=== PATIENT | male | born 1980 | race Caucasian/White ===

== ENCOUNTER 2018-12-16 18:26 | Emergency (ER) | payer MEDICAID, MEDICARE, OTHER ==
[~2018-12-16] VITALS: Ht 172.7 cm; Wt 106.6 kg
--- OUTSIDE RECORDS SUMMARY | 2018-12-16 18:34 | XMS REPORT | Continuity of Care Document ---
Author Author [facility] Address Unknown Phone Unavailable Allergies There is no data. Medications There is no data. Problems Date Dx Coded Attending Type Code Diagnosis Diagnosed By 08/14/2012 DIOGO HARTLEY PHD V06.1 TDAP DX 08/14/2012 V06.1 TDAP DX 08/14/2012 V06.1 TDAP DX 08/14/2012 FRANSISCA EDWARD DO V06.1 TDAP DX 08/14/2012 IDOGO HARTLEY PHD V06.1 TDAP DX 08/14/2012 V06.1 TDAP DX 08/14/2012 V06.1 TDAP DX 08/14/2012 V06.1 TDAP DX 08/14/2012 V06.1 TDAP DX 08/14/2012 DIOGO HARTLEY PHD V06.1 TDAP DX 08/14/2012 ODILIA PHD, DIOGO A V06.1 TDAP DX 08/14/2012 ODILIA BARRAZA, DIOGO A V06.1 TDAP DX 08/14/2012 DIOGO HARTLEY PHD A V06.1 TDAP DX 08/14/2012 DIOGO HARTLEY PHD A V06.1 TDAP DX 09/09/2012 DIOGO HARTLEY PHD 296.90 MOOD DISORDER NOS 09/09/2012 DIOOG HARTLEY PHD 300.00 AN ANXIETY UNSPEC 09/09/2012 296.90 MOOD DISORDER NOS 09/09/2012 300.00 AN ANXIETY UNSPEC 09/09/2012 296.90 MOOD DISORDER NOS 09/09/2012 300.00 AN ANXIETY UNSPEC 09/09/2012 FRANSISCA EDWARD DO 296.90 MOOD DISORDER NOS 09/09/2012 FRANSISCA EDWARD DO 300.00 AN ANXIETY UNSPEC 09/09/2012 DIOGO HARTLEY PHD 296.90 MOOD DISORDER NOS 09/09/2012 DIOGO HARTLEY PHD 300.00 AN ANXIETY UNSPEC 09/09/2012 296.90 MOOD DISORDER NOS 09/09/2012 300.00 AN ANXIETY UNSPEC 09/09/2012 296.90 MOOD DISORDER NOS 09/09/2012 300.00 AN ANXIETY UNSPEC 09/09/2012 296.90 MOOD DISORDER NOS 09/09/2012 300.00 AN ANXIETY UNSPEC 09/09/2012 296.90 MOOD DISORDER NOS 09/09/2012 300.00 AN ANXIETY UNSPEC 09/09/2012 DIOGO HARTLEY PHD 296.90 MOOD DISORDER NOS 09/09/2012 ODILIA BARRAZA, DIOGO A 300.00 AN ANXIETY UNSPEC 09/09/2012 DIOGO HARTLEY PHD A 296.90 MOOD DISORDER NOS 09/09/2012 ODILIA BARRAZA, DIOGO A 300.00 AN ANXIETY UNSPEC 09/09/2012 DIOGO HARTLEY PHD A 296.90 MOOD DISORDER NOS 09/09/2012 DIOGO HARTLEY PHD A 300.00 AN ANXIETY UNSPEC 09/09/2012 DIOGO HARTLEY PHD A 296.90 MOOD DISORDER NOS 09/09/2012 DIOGO HARTLEY PHD A 300.00 AN ANXIETY UNSPEC 09/09/2012 DIOGO HARTLEY PHD A 296.90 MOOD DISORDER NOS 09/09/2012 ODILIA BARRAZA, DIOGO A 300.00 AN ANXIETY UNSPEC 09/09/2012 DIOGO HARTLEY PHD A 296.90 MOOD DISORDER NOS 09/09/2012 DIOGO HARTLEY PHD A 300.00 AN ANXIETY UNSPEC 11/13/2012 FRANSISCA EDWARD DO 311 DEPRESSIVE DISORDER NOS 11/13/2012 FRANSISCA EDWARD DO 312.30 I IMPULSE CONTROL DISORDER NOS 11/13/2012 FRANSISCA EDWARD DO 314.01 ATTENTION DEFICIT DISORDER OF CHILDHOOD WITH HYPERACTIVITY 11/13/2012 DIOGO HARTLEY PHD 311 DEPRESSIVE DISORDER NOS 11/13/2012 DIOGO HARTLEY PHD 312.30 I IMPULSE CONTROL DISORDER NOS 11/13/2012 DIOGO HARTLEY PHD 314.01 ATTENTION DEFICIT DISORDER OF CHILDHOOD WITH HYPERACTIVITY 11/13/2012 311 DEPRESSIVE DISORDER NOS 11/13/2012 312.30 I IMPULSE CONTROL DISORDER NOS 11/13/2012 314.01 ATTENTION DEFICIT DISORDER OF CHILDHOOD WITH HYPERACTIVITY 11/13/2012 311 DEPRESSIVE DISORDER NOS 11/13/2012 312.30 I IMPULSE CONTROL DISORDER NOS 11/13/2012 314.01 ATTENTION DEFICIT DISORDER OF CHILDHOOD WITH HYPERACTIVITY 11/13/2012 311 DEPRESSIVE DISORDER NOS 11/13/2012 312.30 I IMPULSE CONTROL DISORDER NOS 11/13/2012 314.01 ATTENTION DEFICIT DISORDER OF CHILDHOOD WITH HYPERACTIVITY 11/13/2012 311 DEPRESSIVE DISORDER NOS 11/13/2012 312.30 I IMPULSE CONTROL DISORDER NOS 11/13/2012 314.01 ATTENTION DEFICIT DISORDER OF CHILDHOOD WITH HYPERACTIVITY 11/13/2012 DIOGO HARTLEY PHD 311 DEPRESSIVE DISORDER NOS 11/13/2012 DIOGO HARTLEY PHD 312.30 I IMPULSE CONTROL DISORDER NOS 11/13/2012 DIOGO HARTLEY PHD 314.01 ATTENTION DEFICIT DISORDER OF CHILDHOOD WITH HYPERACTIVITY 11/13/2012 DIOGO HARTLEY PHD 311 DEPRESSIVE DISORDER NOS 11/13/2012 DIOGO HARTLEY PHD 312.30 I IMPULSE CONTROL DISORDER NOS 11/13/2012 DIOGO HARTLEY PHD 314.01 ATTENTION DEFICIT DISORDER OF CHILDHOOD WITH HYPERACTIVITY 11/13/2012 DIOGO HARTLEY PHD 311 DEPRESSIVE DISORDER NOS 11/13/2012 DIOGO HARTLEY PHD 312.30 I IMPULSE CONTROL DISORDER NOS 11/13/2012 DIOGO HARTLEY PHD 314.01 ATTENTION DEFICIT DISORDER OF CHILDHOOD WITH HYPERACTIVITY 11/13/2012 DIOGO HARTLEY PHD 311 DEPRESSIVE DISORDER NOS 11/13/2012 DIOGO HARTLEY PHD 312.30 I IMPULSE CONTROL DISORDER NOS 11/13/2012 DIOGO HARTLEY PHD 314.01 ATTENTION DEFICIT DISORDER OF CHILDHOOD WITH HYPERACTIVITY 11/13/2012 DIOGO HARTLEY PHD 311 DEPRESSIVE DISORDER NOS 11/13/2012 DIOGO HARTLEY PHD 312.30 I IMPULSE CONTROL DISORDER NOS 11/13/2012 DIOGO HARTLEY PHD 314.01 ATTENTION DEFICIT DISORDER OF CHILDHOOD WITH HYPERACTIVITY Procedures Code [place] [address] PSYCH DIAG INTER EXAM 09/09/2012 54081 INDIV PSYTX 45/50 MIN 09/19/2012 52221 PSYTX PT&/FAMILY 45 MINUTES 10/24/2012 87193 PSYTX PT&/FAMILY 45 MINUTES 11/07/2012 69074 PSYTX PT&/FAMILY 45 MINUTES 12/05/2012 91505 PSYTX PT&/FAMILY 45 MINUTES 01/28/2013 91291 PSYTX PT&/FAMILY 45 MINUTES 03/07/2013 74953 PSYTX PT&/FAMILY 45 MINUTES 06/13/2013 81179 PSYTX PT&/FAMILY 45 MINUTES 07/10/2013 98308 PSYTX PT&/FAMILY 45 MINUTES 07/17/2013 42577 PSYTX PT&/FAMILY 45 MINUTES 07/25/2013 07731 PSYTX PT&/FAMILY 45 MINUTES 08/13/2013 46736 PSYTX PT&/FAMILY 45 MINUTES 08/28/2013 Results There is no data. Encounters ACCT No. Visit Date/Time Discharge Status Pt. Type Provider Facility Loc./Unit Complaint [id number] 08/27/2013 12:42:00 08/27/2013 23:59:59 CLS Outpatient DIOGO HARTLEY PHD [id number] 08/12/2013 11:39:00 08/12/2013 23:59:59 CLS Outpatient DIOGO HARTLEY PHD [id number] 07/24/2013 14:36:00 07/24/2013 23:59:59 CLS Outpatient DIOGO HARTLEY PHD [id number] 07/16/2013 12:22:00 07/16/2013 23:59:59 CLS Outpatient DIOGO HARTLEY PHD [id number] 07/09/2013 13:14:00 07/09/2013 23:59:59 CLS Outpatient DIOGO HARTLEY PHD [id number] 12/04/2012 10:53:00 12/04/2012 23:59:59 CLS Outpatient DIOGO HARTLEY PHD [id number] 11/22/2012 10:45:00 11/22/2012 23:59:59 CLS Outpatient FRANSISCA EDWARD DO [id number] 11/06/2012 10:38:00 11/06/2012 23:59:59 CLS Outpatient [id number] 10/23/2012 10:39:00 10/23/2012 23:59:59 CLS Outpatient [id number] 09/19/2012 07:47:00 09/19/2012 23:59:59 CLS Outpatient DIOGO HARTLEY PHD [id number] 08/14/2012 12:57:33 08/14/2012 23:59:59 CLS Outpatient DIOGO HARTLEY PHD [id number] 06/12/2013 12:45:00 Document Registration [id number] 03/06/2013 08:51:00 Document Registration [id number] 02/13/2013 16:06:00 Document Registration [id number] 01/24/2013 10:36:00 Document Registration
[2018-12-16] MEDS ORDERED: NS IV 1000 ML 3,197.82 ML IV ONE (20:30)
[2018-12-16] MEDS ORDERED: ACETAMINOPHEN 500 MG TAB (TYLENOL) PO PRN (20:30)
--- NOTE | 2018-12-16 20:31 | ED General ---
General Chief Complaint: Fever-Adult/Adol Stated Complaint: FEVER, BONE ACHES, HEADACHES, VOMITING Nursing Triage Note: Pt arrived by private car with chief complaint of fever of 101.4 degrees since 0630, cough, body aches, headache with pain of 4, nausea and vomiting. Pt stated he got sick this morning. Pt is alert, oriented and ambulatory. Pt stated he "feels like crap." Pt has not taken anything for the fever. Pt's temp was 104.4 degrees on arrival Nursing Sepsis Screen: Possible Sepsis Risk History of Present Illness Date Seen by Provider: Dec 16, 2018 Time Seen by Provider: 20:19 Timing/Duration: 1-2 Days Severity: Moderate Modifying Factors: improves with Other (tried no medications) This is a 38-year-old male with a history of hypertension who takes no medications who is here with 1 day of fever, body aches, mild nonproductive cough, minimal sore throat, headache. Headache not abrupt in onset or worst of life. No visual change or focal weakness, numbness, or tingling. No neck pain or neck stiffness. Did have nausea earlier in the day but this has resolved. Patient has had a flu shot. No rash. No other symptoms. Allergies and Home Medications Allergies Coded Allergies: No Known Drug Allergies (Unverified , 12/16/18) Patient Home Medication List Home Medication List Reviewed: Yes Review of Systems Review of Systems Constitutional: see HPI EENTM: see HPI Respiratory: see HPI Cardiovascular: no symptoms reported Gastrointestinal: see HPI Genitourinary: no symptoms reported Musculoskeletal: see HPI Skin: no symptoms reported Psychiatric/Neurological: See HPI Hematologic/Lymphatic: No Symptoms Reported Immunological/Allergic: no symptoms reported Past Zcvnrbc-Towdhh-Zcepxw Hx Patient Social History Recent Foreign Travel: No Contact w/Someone Who Travel: No Recent Infectious Disease Expo: No Physical Abuse: No Sexual Abuse: No Mistreated: No Fear: No Physical Exam-Suspected Sepsis Physical Exam Vital Signs Vital Signs - First Documented 12/16/18 18:35 Temp 104.4 Pulse 118 Resp 20 B/P (MAP) 157/88 (111) Pulse Ox 99 O2 Delivery Room Air Capillary Refill : Less Than 3 Seconds Blood Pressure Mean: 111 Height, Weight, BMI Height: 5'8.00" Weight: 235lbs. 0oz. 106.092698fu; BMI Method:Stated General Appearance: No Apparent Distress HEENT: PERRL/EOMI, Moist Mucous Membranes Neck: Supple Respiratory: Lungs Clear Cardiovascular: Regular Rate, Rhythm, Normal Peripheral Pulses Gastrointestinal: Non Tender, Soft Extremity: Normal Capillary Refill Neurologic/Psychiatric: Alert, Oriented x3, No Motor/Sensory Deficits, Normal Mood/Affect, final inspection supervisor II-XII Norm as Tested; No Abnormal Gait Skin: warm/dry Focused Exam Lactate Level 12/16/18 21:13: Lactic Acid Level 1.83 Lactic Acid Level Laboratory Tests Test 12/16/18 21:13 Lactic Acid Level 1.83 MMOL/L (0.50-2.00) Progress/Results/Core Measures Suspected Sepsis Recent Fever Within 48 Hours: Yes Infection Criteria Present: Suspected New Infection New/Unexplained Altered Menta: No Sepsis Screen: Possible Sepsis Risk SIRS Temperature:104.4 Pulse: 118 Respiratory Rate: 20 Laboratory Tests 12/16/18 21:13: White Blood Count 10.6 Blood Pressure 157 /88 Mean: 111 12/16/18 21:13: Lactic Acid Level 1.83 Laboratory Tests 12/16/18 21:13: Creatinine 0.69, INR Comment 1.1, Platelet Count 267, Total Bilirubin 0.7 Results/Orders Lab Results Laboratory Tests Test 12/16/18 21:13 Range/Units White Blood Count 10.6 4.3-11.0 10^3/uL Red Blood Count 5.86 H 4.35-5.85 10^6/uL Hemoglobin 16.5 13.3-17.7 G/DL Hematocrit 49 40-54 % Mean Corpuscular Volume 84 80-99 FL Mean Corpuscular Hemoglobin 28 25-34 PG Mean Corpuscular Hemoglobin Concent 34 32-36 G/DL Red Cell Distribution Width 12.3 10.0-14.5 % Platelet Count 267 130-400 10^3/uL Mean Platelet Volume 10.1 7.4-10.4 FL Neutrophils (%) (Auto) 79 H 42-75 % Lymphocytes (%) (Auto) 11 L 12-44 % Monocytes (%) (Auto) 8 0-12 % Eosinophils (%) (Auto) 1 0-10 % Basophils (%) (Auto) 1 0-10 % Neutrophils # (Auto) 8.5 H 1.8-7.8 X 10^3 Lymphocytes # (Auto) 1.2 1.0-4.0 X 10^3 Monocytes # (Auto) 0.8 0.0-1.0 X 10^3 Eosinophils # (Auto) 0.1 0.0-0.3 10^3/uL Basophils # (Auto) 0.1 0.0-0.1 10^3/uL Prothrombin Time 13.8 12.2-14.7 SEC INR Comment 1.1 0.8-1.4 Activated Partial Thromboplast Time 29 24-35 SEC Sodium Level 138 135-145 MMOL/L Potassium Level 4.0 3.6-5.0 MMOL/L Chloride Level 97 L 98-107 MMOL/L Carbon Dioxide Level 25 21-32 MMOL/L Anion Gap 16 H 5-14 MMOL/L Blood Urea Nitrogen 10 7-18 MG/DL Creatinine 0.69 0.60-1.30 MG/DL Estimat Glomerular Filtration Rate > 60 BUN/Creatinine Ratio 14 Glucose Level 94 70-105 MG/DL Lactic Acid Level 1.83 0.50-2.00 MMOL/L Calcium Level 9.7 8.5-10.1 MG/DL Corrected Calcium 9.3 8.5-10.1 MG/DL Total Bilirubin 0.7 0.1-1.0 MG/DL Aspartate Amino Transf (AST/SGOT) 25 5-34 U/L Alanine Aminotransferase (ALT/SGPT) 35 0-55 U/L Alkaline Phosphatase 102 40-136 U/L Total Protein 8.1 6.4-8.2 GM/DL Albumin 4.5 3.2-4.5 GM/DL My Orders Orders - CHOLO ALAMO DO Cbc With Automated Diff (12/16/18 20:) Comprehensive Metabolic Panel (12/16/18 20:28) Blood Culture (12/16/18 20:28) Protime With Inr (12/16/18 20:) Partial Thromboplastin Time (12/16/18 20:28) Chest 1 View Ap/Pa Only (12/16/18 20:) Acetaminophen Tablet (Tylenol Tablet) (12/16/18 20:30) Saline Lock/Iv-Start (12/16/18 20:28) Saline Lock/Iv-Start (12/16/18 20:28) Vital Signs Adult Sepsis Patie Q15M (12/16/18 20:28) O2 (12/16/18 20:28) Remove Rings In Anticipation O (12/16/18 20:28) Lactic Acid Analyzer (12/16/18 20:28) Ns Iv 1000 Ml (Sodium Chloride 0.9%) (12/16/18 20:30) Medications Given in ED Current Medications Medications Dose Ordered Sig/Kiran Route Start Time Stop Time Status Last Admin Dose Admin Acetaminophen 1,000 mg ONCE PRN PO 12/16/18 20:30 12/16/18 21:27 DC 12/16/18 21:20 1,000 MG Sodium Chloride 3,197.82 ml @ 3,197.82 mls/hr ONCE ONCE IV 12/16/18 20:30 12/16/18 21:29 DC 12/16/18 21:26 3,197.82 MLS/HR Vital Signs/I&O 12/16/18 12/16/18 12/16/18 18:35 21:15 21:20 Temp 104.4 102.5 102.5 Pulse 118 108 Resp 20 22 B/P (MAP) 157/88 (111) 127/53 Pulse Ox 99 98 O2 Delivery Room Air Room Air Capillary Refill : Less Than 3 Seconds Blood Pressure Mean: 111 Progress Note #1: Progress Note I suspect the patient is suffering from a viral syndrome. I do not believe his headache is related to meningitis, he has no meningeal symptoms, he is neurologically intact, and in the constellation of other symptoms I feel again a viral syndrome is more likely. We will screen for severe sepsis with a lactic acid level, we will also send basic labs, we will provide empiric fluid resuscitation. I will defer empiric antibiotics at this time. We will continue to monitor. Progress Note #2: Progress Note Patient feels better, vitals improved, will treat with Tamiflu and will cover with azithromycin given possible early infiltrate on chest x-ray with his mild cough. Diagnostic Imaging Diagonstic Imaging: Xray Comments EP interpretation: Poor inspiratory effort, with some dependent vascular crowding. No pneumothoraces. Trachea is midline with head rotated, no obvious bony abnormality, cardiomediastinal silhouette is within normal limits, diaphragmatic borders are sharp with no effusions, Reviewed: Reviewed by Me Departure Impression Primary Impression: Influenza-like symptoms Additional Impression: Abnormal chest xray Disposition: HOME, SELF-CARE Condition: Stable Departure-Patient Inst. Referrals: ANALIA DURAND APRN (PCP) Primary Care Physician Patient Instructions: Flu, Adult (DC) Scripts Azithromycin (Azithromycin) 250 Mg Tablet 250 MG PO UD, #6 TAB TAKE 2 TABLETS ON DAY ONE THEN TAKE 1 TABLET DAILY FOR FOUR MORE DAYS Prov: CHOLO ALAMO DO 12/16/18 Oseltamivir Phosphate (Tamiflu) 75 Mg Cap 75 MG PO BID for 5 Days, #10 CAP Prov: CHOLO ALAMO DO 12/16/18 CHOLO ALAMO DO Dec 16, 2018 20:31
--- NOTE | 2018-12-16 21:17 | Diagnostic Imaging Report ---
EXAMINATION: Chest dated 12/16/2018 FINDINGS: There is atelectasis at the lung bases. No infiltrates or effusions are seen. There is no pneumothorax. Heart unremarkable. Pulmonary vasculature unremarkable. IMPRESSION: Mild right base atelectasis, early infiltrate not excluded. Otherwise, negative chest. Dictated by: Dictated on workstation # [id number]
[2018-12-16 21:36] LABS: HEMATOCRIT 49 % (40-54); HEMOGLOBIN 16.5 G/DL (13.3-17.7); LYMPHOCYTES % (AUTO) 11 % (12-44); MEAN CORPUSCULAR HEMOGLOBIN 28 PG (25-34); MEAN CORPUSCULAR HGB CONC 34 G/DL (32-36); MEAN CORPUSCULAR VOLUME 84 FL (80-99); MEAN PLATELET VOLUME 10.1 FL (7.4-10.4); MONOCYTES % (AUTO) 8 % (0-12); PLATELET COUNT 267 10^3/uL (130-400); RED CELL DISTRIBUTION WIDTH 12.3 % (10.0-14.5); WHITE BLOOD COUNT 10.6 10^3/uL (4.3-11.0)
[2018-12-16 21:37] LABS: BASOPHILS # (AUTO) 0.1 10^3/uL (0.0-0.1); BASOPHILS % (AUTO) 1 % (0-10); EOSINOPHILS # (AUTO) 0.1 10^3/uL (0.0-0.3); EOSINOPHILS % (AUTO) 1 % (0-10); LYMPHOCYTES # (AUTO) 1.2 X 10^3 (1.0-4.0); MONOCYTES # (AUTO) 0.8 X 10^3 (0.0-1.0); NEUTROPHILS # (AUTO) 8.5 X 10^3 (1.8-7.8); NEUTROPHILS % (AUTO) 79 % (42-75)
[2018-12-16 22:02] LABS: ALANINE AMINOTRANSFERASE 35 U/L (0-55); ALBUMIN 4.5 GM/DL (3.2-4.5); ALKALINE PHOSPHATASE 102 U/L (40-136); BILIRUBIN,TOTAL 0.7 MG/DL (0.1-1.0); BUN/CREATININE RATIO 14; CALCIUM 9.7 MG/DL (8.5-10.1); CARBON DIOXIDE 25 MMOL/L (21-32); CHLORIDE 97 MMOL/L (98-107); CREATININE SERUM 0.69 MG/DL (0.60-1.30); GFR ESTIMATED > 60; GLUCOSE 94 MG/DL (70-105); SODIUM 138 MMOL/L (135-145); TOTAL PROTEIN 8.1 GM/DL (6.4-8.2)
[2018-12-16 22:42] LABS: INR 1.1 (0.8-1.4); PROTHROMBIN TIME PATIENT 13.8 SEC (12.2-14.7)
[2018-12-16] MEDS ORDERED: AZIT250T12 PO (23:23)
[2018-12-16] MEDS ORDERED: OSLT75C PO (23:23)
[2018-12-16 23:45] VITALS: BP 146/76
== END 2018-12-16 23:45 | disposition home or self-care (01) ==
LOC: ER FS 18:30
DX: R50.9 Fever, unspecified (principal); R51 Headache; R11.10 Vomiting, unspecified; R52 Pain, unspecified; I10 Essential (primary) hypertension; R91.8 Other nonspecific abnormal finding of lung field
CPT/HCPCS: 36415; 71045; 80053; 83605; 85025; 85610; 85730; 87040

== ENCOUNTER → 2019-11-24 | Outpatient (CLI) | payer OTHER ==
[~2019-11-24] MED LIST: AZIT250T12 PO; OSLT75C PO
--- NOTE | 2019-11-24 11:45 | Diagnostic Imaging Report ---
EXAMINATION: CHEST (PA AND LATERAL) CLINICAL INDICATION: 39-year-old male, cough. COMPARISON: December 16, 2018. FINDINGS: Heart size and mediastinal contours are unremarkable. There is no identified pneumothorax. There is no pleural effusion. There is no identified focal airspace consolidation. IMPRESSION: No identified acute cardiopulmonary abnormality. Dictated by: Dictated on workstation # [id number]
== END ==
LOC: RAD FS 11:32
PROVIDERS: ATTEND Nurse Practitioner Family
DX: R05 Cough (principal); R09.89 Other specified symptoms and signs involving the circulatory and respiratory systems
CPT/HCPCS: 71046

== ENCOUNTER 2021-10-23 16:18 | Emergency (ER) | payer MEDICARE, OTHER ==
[~2021-10-23] VITALS: Ht 172 cm; Wt 120.0 kg
[2021-10-23 16:28] VITALS: BP 154/87
[2021-10-23] MEDS ORDERED: KETOROLAC 30 MG/ML VIAL IVP STA (16:38)
[2021-10-23] MEDS ORDERED: cefTRIAXone 1 GM PRE-MIX 50 ML IV STA (16:38)
--- NOTE | 2021-10-23 16:41 | ED General ---
General Chief Complaint: Cough/Cold/Flu Symptoms Stated Complaint: SOB; SORE THROAT Nursing Triage Note: Patient has presented to ER with cc of short of breath, sore throat, cough, body aches, headaches, and not feeling well. Patient reports being as urgent care 2 days ago and tested postive for strep throat - was started on amoxil. He tested negative for flu and covid at that time but he reports that he just feels worse. Source of Information: Patient History of Present Illness Date Seen by Provider: Oct 23, 2021 Time Seen by Provider: 16:20 Initial Comments 41-year-old male presenting with complaints of generally not feeling well. He has been having sore throat, shortness of breath, cough, body aches, headaches. He was seen in urgent care yesterday and tested positive for strep throat. He states that his influenza and COVID test were negative at the urgent care. He had 3 doses of amoxicillin yesterday and 2 doses so far today. He feels worse today and does not feel like anything has improved. He is now coughing up some yellow-colored sputum. He denies having any nausea or vomiting. He has intermittent pressure like something is sitting on his chest. He does have a history of high blood pressure and high cholesterol. He is overweight. He denies any allergies to medications. He has not tried taking any medications for his throat or chest pain. Timing/Duration: 1-2 Days Severity: Severe Modifying Factors: worse with Movement (Deep breaths and moving makes it worse, swallowing makes his throat hurt more) Associated Systoms: Chest Pain (Feels like there is a pressure or weight on his chest at times), Cough; No Diaphoresis, No Fever/Chills; Headaches, Loss of Appetite, Malaise; No Nausea/Vomiting, No Rash, No Seizure; Shortness of Air; No Syncope, No Weakness Allergies and Home Medications Allergies Coded Allergies: No Known Drug Allergies (Unverified , 12/16/18) Patient Home Medication List Home Medication List Reviewed: Yes Azithromycin (Azithromycin) 250 Mg Tablet, 250 MG PO UD Prescribed by: CHOLO ALAMO on 12/16/18 5222 Oseltamivir Phosphate (Tamiflu) 75 Mg Cap, 75 MG PO BID Prescribed by: CHOLO ALAMO on 12/16/18 6343 Review of Systems Review of Systems Constitutional: see HPI; No dizziness EENTM: throat pain; No ear pain, No blurred vision, No epistaxis, No nose con gestion Respiratory: cough, short of breath; No stridor, No wheezing Cardiovascular: see HPI Gastrointestinal: see HPI Genitourinary: No dysuria, No frequency Musculoskeletal: muscle pain (Generalized body aches) Skin: No rash Psychiatric/Neurological: Headache Hematologic/Lymphatic: Denies Blood Clots Past Hpqsrlf-Ksqrdf-Tkzcji Hx Patient Social History Tobacco Use?: Yes Use of E-Cig and/or Vaping dev: No Substance use?: No Alcohol Use?: No Pt feels they are or have been: No Seasonal Allergies Seasonal Allergies: No Past Medical History Surgery/Hospitalization HX: Hypertension, high cholesterol Surgeries: No Respiratory: Yes Sleep Apnea Currently Using CPAP: Yes Cardiac: Yes (HYPERTRIGLYCERIDEMIA) Hypertension Genitourinary: No Gastrointestinal: Yes Gastroesophageal Reflux Musculoskeletal: No Endocrine: No HEENT: No Cancer: No Psychosocial: Yes Anxiety, Bipolar Integumentary: No Blood Disorders: No Physical Exam Vital Signs Vital Signs - First Documented 10/23/21 16:28 Temp 35.6 Pulse 81 Resp 16 B/P (MAP) 154/87 (109) O2 Delivery Room Air Capillary Refill : Height, Weight, BMI Height: 5'8.00" Weight: 235lbs. 0oz. 106.407514wl; 40.00 BMI Method:Stated General Appearance: No Apparent Distress, Obese HEENT: PERRL/EOMI, TMs Normal, Pharyngeal Erythema; No Photophobia, No Tonsillar Exudate, No Tonsillar Enlargement Neck: Full Range of Motion, Normal Inspection, Non Tender, Supple, Lymphadenopathy (L), Lymphadenopathy (R) Respiratory: Chest Non Tender, Lungs Clear, Normal Breath Sounds, No Accessory Muscle Use, No Respiratory Distress Cardiovascular: Regular Rate, Rhythm, Normal Peripheral Pulses Gastrointestinal: Normal Bowel Sounds, No Pulsatile Mass, Non Tender, Soft Rectal: Deferred Extremity: Normal Capillary Refill, Normal Inspection, No Pedal Edema Neurologic/Psychiatric: Alert, Oriented x3, director of slot operations II-XII Norm as Tested Skin: Normal Color, Warm/Dry Focused Exam Lactate Level 10/23/21 16:30: Lactic Acid Level 2.03*H Lactic Acid Level Laboratory Tests Test 10/23/21 16:30 Lactic Acid Level 2.03 MMOL/L (0.50-2.00) *H Progress/Results/Core Measures Suspected Sepsis SIRS Temperature: Pulse: 81 Respiratory Rate: 16 Laboratory Tests 10/23/21 16:30: White Blood Count 12.6H Blood Pressure 154 /87 Mean: 109 10/23/21 16:30: Lactic Acid Level 2.03*H Laboratory Tests 10/23/21 16:03: Creatinine 0.95, Total Bilirubin 0.5 10/23/21 16:30: INR Comment 0.9, Platelet Count 302 Results/Orders Lab Results Laboratory Tests Test 10/23/21 16:03 10/23/21 16:30 10/23/21 16:38 Range/Units Sodium Level 135 135-145 MMOL/L Potassium Level 3.9 3.6-5.0 MMOL/L Chloride Level 95 L 98-107 MMOL/L Carbon Dioxide Level 29 21-32 MMOL/L Anion Gap 11 5-14 MMOL/L Blood Urea Nitrogen 10 7-18 MG/DL Creatinine 0.95 0.60-1.30 MG/DL Estimat Glomerular Filtration Rate 104 BUN/Creatinine Ratio 11 Glucose Level 147 H 70-105 MG/DL Calcium Level 9.1 8.5-10.1 MG/DL Corrected Calcium 8.9 8.5-10.1 MG/DL Total Bilirubin 0.5 0.1-1.0 MG/DL Aspartate Amino Transf (AST/SGOT) 21 5-34 U/L Alanine Aminotransferase (ALT/SGPT) 34 0-55 U/L Alkaline Phosphatase 133 40-136 U/L Troponin I < 0.30 <0.30 NG/ML C-Reactive Protein 2.67 H <0.50 MG/DL Total Protein 7.6 6.4-8.2 GM/DL Albumin 4.2 3.2-4.5 GM/DL White Blood Count 12.6 H 4.3-11.0 10^3/uL Red Blood Count 5.75 H 4.30-5.52 10^6/uL Hemoglobin 16.3 13.3-17.7 g/dL Hematocrit 48 40-54 % Mean Corpuscular Volume 83 80-99 fL Mean Corpuscular Hemoglobin 28 25-34 pg Mean Corpuscular Hemoglobin Concent 34 32-36 g/dL Red Cell Distribution Width 12.3 10.0-14.5 % Platelet Count 302 130-400 10^3/uL Mean Platelet Volume 10.0 9.0-12.2 fL Immature Granulocyte % (Auto) 0 % Neutrophils (%) (Auto) 62 42-75 % Lymphocytes (%) (Auto) 26 12-44 % Monocytes (%) (Auto) 7 0-12 % Eosinophils (%) (Auto) 3 0-10 % Basophils (%) (Auto) 1 0-10 % Neutrophils # (Auto) 7.8 1.8-7.8 X 10^3 Lymphocytes # (Auto) 3.3 1.0-4.0 X 10^3 Monocytes # (Auto) 0.9 0.0-1.0 X 10^3 Eosinophils # (Auto) 0.4 H 0.0-0.3 10^3/uL Basophils # (Auto) 0.1 0.0-0.1 10^3/uL Immature Granulocyte # (Auto) 0.1 0.0-0.1 10^3/uL Prothrombin Time 12.6 12.2-14.7 SEC INR Comment 0.9 0.8-1.4 Activated Partial Thromboplast Time 25 24-35 SEC Lactic Acid Level 2.03 *H 0.50-2.00 MMOL/L My Orders Orders - ELMA LEVY MD Monitor-Rhythm Ecg Trace Only (10/23/21 16:36) Ed Iv/Invasive Line Start (10/23/21 16:36) Cbc With Automated Diff (10/23/21 16:36) Comprehensive Metabolic Panel (10/23/21 16:36) Crp Fs (10/23/21 16:36) Troponin I Fs (10/23/21 16:36) Protime With Inr (10/23/21 16:36) Partial Thromboplastin Time (10/23/21 16:36) Ekg Tracing (10/23/21 16:36) Ns Iv 1000 Ml (Sodium Chloride 0.9%) (10/23/21 16:45) Blood Culture (10/23/21 16:36) Chest 1 View Ap/Pa Only (10/23/21 16:36) Lactic Acid Analyzer (10/23/21 16:36) Dexamethasone Injection (Decadron Inje (10/23/21 16:38) Ceftriaxone 1 Gm Pre-Mix (Rocephin 1 Gm (10/23/21 16:38) Ketorolac Injection (Toradol Injection) (10/23/21 16:38) Covid 19 Inhouse Test (10/23/21 17:30) Isolation Central Supply Req (10/23/21 17:30) Vital Signs/I&O 10/23/21 16:28 Temp 35.6 Pulse 81 Resp 16 B/P (MAP) 154/87 (109) O2 Delivery Room Air Capillary Refill : Blood Pressure Mean: 109 Progress Note #1: Progress Note Reassured patient that his vital signs all appeared stable and no acute significant abnormality. Advised that I could order some basic labs and electrolyte panel. EKG to look at his heart. Chest x-ray to look for p neumonia. Try giving IV fluids for hydration, steroids and inflammation medicine for his pressure in his chest and throat pain. Differential diagnosis includes sepsis, pneumonia, not giving time for the antibiotic to treat his strep, viral infection in addition to the strep throat Progress Note #2: Progress Note Labs show mild elevation of his white blood cell count consistent with a strep throat. His chemistry panel does not show acute significant abnormality other than he had lactic acid at the cutoff level of 2.03. He was treated with a liter of normal saline for hydration and a gram of Rocephin to help boost the amoxicillin. His troponin was negative. His influenza was negative still. Chest x-ray was poor respiratory effort. He did not have any definite infiltrates showing. His vital signs and oxygen level were still good here in the ED. Counseled patient that it takes a minimum of 48 to 72 hours of antibiotics and treatment before he might start to feel better with the strep throat. Encouraged to continue to push fluids and rest at home. He asked about having COVID results from [employer] as well so a COVID swab will be sent off. Counseled on symptomatic treatment for his sore throat as well as cough and congestion. ECG Initial ECG Impression Date: Oct 23, 2021 Initial ECG Impression Time: 16:27 Initial ECG Rate: 77 Initial ECG Rhythm: Normal Sinus Initial ECG Comparisson: No Previous ECG Available Comment Normal sinus rhythm with heart rate of 77 bpm. Low voltage precordial leads. VA interval 168 ms. QT interval 382 ms with a QTc interval of 433 ms. There is artifact and wander on the tracing. No acute ST elevation. There is no prior tracing available for comparison. Diagnostic Imaging Diagonstic Imaging: Xray Plain Films/CT/US/NM/MRI: chest Comments [facility], [facility]. [place], [place] NAME: STEFANIA LOGAN JR [facility] REC#: [id number] PT STATUS: REG ER : 1980 PHYSICIAN: ELMA LEVY MD ADMIT DATE: 10/23/21/ER FS Draft Date of Exam:10/23/21 CHEST 1 VIEW AP/PA ONLY INDICATION: Cough, shortness of breath. COMPARISON: 11/24/2019. TECHNIQUE: Single radiograph of the chest dated October 23, 2021. FINDINGS: The cardiac silhouette is enlarged. No significant pulmonary vascular congestion. Low lung volumes, though the lungs are clear of focal pulmonary opacity. No pleural effusion. No pneumothorax. No acute osseous abnormality. IMPRESSION: 1. Low lung volumes without superimposed acute cardiopulmonary abnormality. 2. Prominence of the cardiac silhouette, likely accentuated by low lung volumes. Dictated on workstation # [id number] Dict: 10/23/21 1656 Trans: 10/23/21 1705 PJE [id number] Interpreted by: JOAQUIN HAMMER MD Electronically signed by: Reviewed: Reviewed by Me Departure Impression Primary Impression: Strep pharyngitis Additional Impressions: Sensation of chest pressure Cough in adult Disposition: 01 HOME, SELF-CARE Condition: Stable Departure-Patient Inst. Decision time for Depature: 17:32 Referrals: ANALIA DURAND APRN (PCP) Primary Care Physician [facility] (Family) Primary Care Physician Patient Instructions: Strep Throat ED, Sore Throat, Adult ED, Cough, Adult ED Add. Discharge Instructions: Continue taking the antibiotic to treat your strep throat. Continue to push fluids and stay well-hydrated. Consider adding on popsicles and sucking on ice chips to help with hydration and keeping your throat hydrated. Consider adding an plain Mucinex or plain Robitussin to help loosen any cough and congestion. Alternatively you could also use Coricidin. All of these preparations would help with cough and congestion without elevating her blood pressure. You could use acetaminophen and ibuprofen if needed to help control pain and inflammation. For continued symptoms or if not improving we could certainly check back through the clinic. By Sunday or Sunday you should be seeing improvement in your symptoms as the antibiotics kick in and start fighting your strep throat All discharge instructions reviewed with patient and/or family. Voiced understanding. ELMA LEVY MD Oct 23, 2021 16:41
[2021-10-23] MEDS ORDERED: NS IV 1000 ML 1,000 ML IV SCH (16:45)
[2021-10-23 16:48] LABS: HEMOGLOBIN 16.3 g/dL (13.3-17.7); MEAN CORPUSCULAR HEMOGLOBIN 28 pg (25-34); WHITE BLOOD COUNT 12.6 10^3/uL (4.3-11.0)
[2021-10-23 16:49] LABS: BASOPHILS # (AUTO) 0.1 10^3/uL (0.0-0.1); BASOPHILS % (AUTO) 1 % (0-10); EOSINOPHILS # (AUTO) 0.4 10^3/uL (0.0-0.3); EOSINOPHILS % (AUTO) 3 % (0-10); HEMATOCRIT 48 % (40-54); LYMPHOCYTES # (AUTO) 3.3 X 10^3 (1.0-4.0); LYMPHOCYTES % (AUTO) 26 % (12-44); MEAN CORPUSCULAR HGB CONC 34 g/dL (32-36); MEAN CORPUSCULAR VOLUME 83 fL (80-99); MONOCYTES # (AUTO) 0.9 X 10^3 (0.0-1.0); MONOCYTES % (AUTO) 7 % (0-12); NEUTROPHILS # (AUTO) 7.8 X 10^3 (1.8-7.8); NEUTROPHILS % (AUTO) 62 % (42-75); PLATELET COUNT 302 10^3/uL (130-400)
[2021-10-23 16:53] LABS: INR 0.9 (0.8-1.4); PROTHROMBIN TIME PATIENT 12.6 SEC (12.2-14.7)
[2021-10-23 17:03] LABS: ALANINE AMINOTRANSFERASE 34 U/L (0-55); ALBUMIN 4.2 GM/DL (3.2-4.5); ALKALINE PHOSPHATASE 133 U/L (40-136); BILIRUBIN,TOTAL 0.5 MG/DL (0.1-1.0); BUN/CREATININE RATIO 11; CALCIUM 9.1 MG/DL (8.5-10.1); CARBON DIOXIDE 29 MMOL/L (21-32); CHLORIDE 95 MMOL/L (98-107); CREATININE SERUM 0.95 MG/DL (0.60-1.30); GFR ESTIMATED 104; GLUCOSE 147 MG/DL (70-105); POTASSIUM 3.9 MMOL/L (3.6-5.0); SODIUM 135 MMOL/L (135-145); TOTAL PROTEIN 7.6 GM/DL (6.4-8.2)
--- NOTE | 2021-10-23 17:05 | Diagnostic Imaging Report ---
INDICATION: Cough, shortness of breath. COMPARISON: 11/24/2019. TECHNIQUE: Single radiograph of the chest dated October 23, 2021. FINDINGS: The cardiac silhouette is enlarged. No significant pulmonary vascular congestion. Low lung volumes, though the lungs are clear of focal pulmonary opacity. No pleural effusion. No pneumothorax. No acute osseous abnormality. IMPRESSION: 1. Low lung volumes without superimposed acute cardiopulmonary abnormality. 2. Prominence of the cardiac silhouette, likely accentuated by low lung volumes. Dictated by: Dictated on workstation # [id number]
== END 2021-10-23 17:49 | disposition home or self-care (01) ==
LOC: EDUNIT# 16:18 → ER FS 16:20
DX: U07.1 COVID-19 (principal); J02.0 Streptococcal pharyngitis; R05.9 Cough, unspecified; R07.89 Other chest pain; I10 Essential (primary) hypertension; E78.00 Pure hypercholesterolemia, unspecified; G47.30 Sleep apnea, unspecified; Z99.89 Dependence on other enabling machines and devices
CPT/HCPCS: 36415; 71045; 80053; 83605; 84484; 85025; 85610; 85730; 86141; 87040; 87636; 87804; 93005; 96374; 96375

== ENCOUNTER 2022-04-01 20:30 | Emergency (ER) | payer MEDICARE ==
[~2022-04-01] VITALS: Ht 175.2 cm; Wt 106.0 kg
[2022-04-01] MEDS ORDERED: morphine INJ 10 MG/ML 1ML (SYR OR VIAL) IM STA (20:57)
--- NOTE | 2022-04-01 21:05 | ED Back Pain ---
General Chief Complaint: Back Problems Stated Complaint: BACK PAIN Nursing Triage Note: Pt c/o lower back pain that radiates down his legs x few days. Reports he was helping a friend move but does not recall injuring back. Denies urinary symptoms or loss of bladder/bowel. Seen at Urgent Care and given Ibuprofen and Flexeril. Source of Information: Patient Exam Limitations: No Limitations History of Present Illness Date Seen by Provider: Apr 01, 2022 Time Seen by Provider: 20:45 Initial Comments 42-year-old male patient with history of bipolar disorder on monthly injection of Abilify, diabetes mellitus on metformin, hypertension, hyperlipidemia and sleep apnea presented POV with complaining of low back pain. Patient states for the last couple days he was helping a friend for his moving and feeling pain in low back with radiation to bilateral hip as a constant pain that getting worse with movement and activity. Patient rated his pain 8/10 during activity. Patient states he had 1 episode of numbness of bilateral feet this morning that resolved spontaneously. Patient stated he feels pain in left gluteal area on the site of Abilify injection for the last several days that gradually getting worse. Patient was seen at urgent care yesterday and treated with Flexeril and ibuprofen without improvement of his pain. He states he applied icy hot on his back without change of pain. Patient denies history of back pain, urinary and bowel incontinence, abdominal pain, fever and chills, nausea and vomiting, urinary symptom. Allergies and Home Medications Allergies Coded Allergies: No Known Drug Allergies (Unverified , 12/16/18) Patient Home Medication List Home Medication List Reviewed: Yes Azithromycin (Azithromycin) 250 Mg Tablet, 250 MG PO UD Prescribed by: CHOLO ALAMO on 12/16/182322 Hydrocodone/Acetaminophen (Hydrocodone-Acetamin 5-325 mg) 5 Mg-325 Mg Tablet, 1 TAB PO Q6H PRN for PAIN-MODERATE (5-7) Prescribed by: Sandhya reynolds on 04/01/222112 Oseltamivir Phosphate (Tamiflu) 75 Mg Cap, 75 MG PO BID Prescribed by: CHOLO ALAMO on 12/16/182322 Review of Systems Constitutional: no symptoms reported EENTM: no symptoms reported Respiratory: no symptoms reported Cardiovascular: no symptoms reported Gastrointestinal: no symptoms reported Genitourinary: no symptoms reported Musculoskeletal: see HPI Skin: no symptoms reported Psychiatric/Neurological: See HPI All Other Systems Reviewed Negative Unless Noted: Yes Past Xmcinrh-Lejnxl-Hxonih Hx Patient Social History Tobacco Use?: Yes Use of E-Cig and/or Vaping dev: No Substance use?: No Alcohol Use?: No Pt feels they are or have been: No Immunizations Up To Date Influenza Vaccine Up-to-Date: No; Not Current First/Initial COVID19 Vaccinat: denies Seasonal Allergies Seasonal Allergies: No Past Medical History Surgery/Hospitalization HX: Hypertension, high cholesterol Surgeries: No Respiratory: Yes Sleep Apnea Currently Using CPAP: Yes Cardiac: Yes (HYPERTRIGLYCERIDEMIA) High Cholesterol, Hypertension Genitourinary: No Gastrointestinal: Yes Gastroesophageal Reflux Musculoskeletal: No Endocrine: No HEENT: No Cancer: No Psychosocial: Yes Anxiety, Bipolar Integumentary: No Blood Disorders: No Physical Exam Vital Signs Vital Signs - First Documented 04/01/22 20:36 Temp 36.6 Pulse 58 Resp 17 B/P (MAP) 137/87 (104) Pulse Ox 94 O2 Delivery Room Air Capillary Refill : Less Than 3 Seconds Height, Weight, BMI Height: 5'8.00" Weight: 235lbs. 0oz. 106.601095sl; 34.00 BMI Method:Stated General Appearance: Mild Distress, Obese HEENT: PERRL/EOMI Neck: Full Range of Motion, Normal Inspection Cardiovascular: Regular Rate, Rhythm, No Edema, No Gallop, Normal Peripheral Pulses Respiratory: Chest Non Tender, Lungs Clear, Normal Breath Sounds, No Accessory Muscle Use, No Respiratory Distress Gastrointestinal: Normal Bowel Sounds, No Organomegaly, No Pulsatile Mass, Non Tender, Soft Back: Normal Inspection, No CVA Tenderness, No Vertebral Tenderness Extremity: Normal Capillary Refill, Normal Inspection, Normal Range of Motion, Non Tender Neurologic/Psychiatric: Alert, Oriented x3, No Motor/Sensory Deficits, Normal Mood/Affect Skin: Normal Color, Warm/Dry, Other (1 x 1 cm area of erythema on left gluteal area at site of injection without signs of abscess or fluctuation with mild tenderness) Progress/Results/Core Measures Results/Orders My Orders Orders - SANDHYA REYNOLDS MD Morphine Injection (Morphine Injection (04/01/22 20:57) Rx-Hydrocodone/Apap 5-325 Mg (Rx-Vicodin (04/01/22 21:00) Medications Given in ED Current Medications Medications Dose Ordered Sig/Kiran Route Start Time Stop Time Status Last Admin Dose Admin Acetaminophen/ Hydrocodone Bitart 1 ea ONCE ONCE PO 04/01/22 21:00 04/01/22 21:01 DC 04/01/22 21:09 1 EA Vital Signs/I&O 04/01/22 20:36 Temp 36.6 Pulse 58 Resp 17 B/P (MAP) 137/87 (104) Pulse Ox 94 O2 Delivery Room Air Blood Pressure Mean: 104 Progress Progress Note : Progress Note Evaluation of patient in ER showed 42-year-old male patient with complaining of low back pain after lifting weight. Patient treated with cyclobenzaprine and ibuprofen yesterday at urgent care without improvement of his condition. Patient had unremarkable physical exam. Patient had pain in site of injection of Abilify that was done several days ago without signs of abscess and advised to apply ice on the affected area. Patient treated with morphine 5 mg IM in ER and 4 Centrahoma was dispensed from ER and prescription for Centrahoma x8 was given and advised to continue Flexeril and ibuprofen. and follow-up with his primary care physician or return to ER as needed. Departure Impression Primary Impression: Lumbar sprain Qualified Codes: S33.5XXA - Sprain of ligaments of lumbar spine, initial encounter Disposition: HOME, SELF-CARE Condition: Improved Departure-Patient Inst. Decision time for Depature: 21:10 Referrals: ANALIA DURAND APRN (PCP) Primary Care Physician [facility] (Family) Primary Care Physician Patient Instructions: Muscle Strain (DC), Low Back Pain (DC) Add. Discharge Instructions: Continue ibuprofen and cyclobenzaprine Apply ice on your back Follow-up with your primary care physician in 5 to 7 days Return to ER if not getting better Please dispense hydrocodone/acetaminophen once every 6 hours as needed for pain All discharge instructions reviewed with patient and/or family. Voiced understanding. Scripts Hydrocodone/Acetaminophen (Hydrocodone-Acetamin 5-325 mg) 5 Mg-325 Mg Tablet 1 TAB PO Q6H PRN for PAIN-MODERATE (5-7), #8 TAB Prov: SANDHYA REYNOLDS MD 04/01/22 SANDHYA REYNOLDS MD Apr 01, 2022 21:05
[2022-04-01] MEDS ORDERED: ACHD5005 PO (21:13)
[2022-04-01 21:18] VITALS: BP 137/87
== END 2022-04-01 21:18 | disposition home or self-care (01) ==
LOC: EDUNIT# 20:30 → ER FS 20:34
DX: S33.5XXA Sprain of ligaments of lumbar spine, initial encounter (principal); G47.30 Sleep apnea, unspecified; Z99.89 Dependence on other enabling machines and devices; Z28.310 Unvaccinated for COVID-19; X50.0XXA Overexertion from strenuous movement or load, initial encounter
CPT/HCPCS: 99284